=== PATIENT | male | born 2000 | race Caucasian/White ===

== ENCOUNTER 2019-09-11 02:56 | Emergency (ER) | payer OTHER ==
[~2019-09-11] VITALS: Ht 170.2 cm; Wt 84.0 kg
[2019-09-11 04:05] VITALS: BP 121/53
== END 2019-09-11 05:06 | disposition home or self-care (01) ==
LOC: ER 02:56
DX: T40.995A Adverse effect of other psychodysleptics [hallucinogens], initial encounter (principal); F98.9 Unspecified behavioral and emotional disorders with onset usually occurring in childhood and adolescence; F12.10 Cannabis abuse, uncomplicated; Y92.89 Other specified places as the place of occurrence of the external cause
CPT/HCPCS: 99283